=== PATIENT | male | born 1975 | race African-American/Black ===

== ENCOUNTER 2016-10-17 13:30 | Emergency (ER) | payer OTHER ==
[2016-10-17] MEDS ORDERED: ONDANSETRON PF 4 MG/2 ML VIAL. ONE (14:30)
[2016-10-17 14:57] LABS: BASO % 1 % (0-3); EOS % 1 % (0-3); HEMATOCRIT 47.1 % (39.0-53.0); HEMOGLOBIN 15.8 g/dL (13.0-17.5); LYMPH # 2.3 x10^3/uL (1.0-4.8); LYMPH % 32 % (24-48); MEAN CORPUSCULAR HEMOGLOBIN 30 pg (25-35); MEAN CORPUSCULAR HGB CONC 34 g/dL (31-37); MEAN CORPUSCULAR VOLUME 90 fL (79-100); MONO % 6 % (0-9); NEUT % 61 % (31-73); PLATELET COUNT 233 x10^3/uL (140-400); RED BLOOD COUNT 5.27 x10^6/uL (4.30-5.70); RED CELL DISTRIBUTION WIDTH 13.2 % (11.5-14.5); WHITE BLOOD COUNT 7.2 x10^3/uL (4.0-11.0)
[2016-10-17 14:59] LABS: BILIRUBIN,URINE NEGATIVE (NEG); GLUCOSE,URINE NEGATIVE (NEG); NITRITE,URINE NEGATIVE (NEG); PH,URINE 5.5; PROTEIN,URINE 30 mg/dL (NEG-TRACE); UROBILINOGEN,URINE 0.2 mg/dL (0.2 mg/dL)
[2016-10-17] MEDS ORDERED: MORPHINE SULFATE 10 MG/ML VIAL. IV ONE ×2 (15:00→16:00)
[2016-10-17] MEDS ORDERED: IV NORMAL SALINE 1000ML BAG 1,000 ML IV ONE (15:00)
[2016-10-17] MEDS ORDERED: PROCHLORPERAZINE 10 MG/2 ML VIAL. IV ONE (15:00)
[2016-10-17 15:10] LABS: BACTERIA,URINE 0 /HPF (0-FEW); RBC,URINE OCC /HPF (0-2); SPERM,URINE PRESENT /HPF; WBC,URINE OCC /HPF (0-4)
[2016-10-17 15:11] LABS: BARBITURATES NEG (NEG); BENZODIAZEPINES NEG (NEG); CANNABINOIDS NEG (NEG); COCAINE NEG (NEG); METHADONE NEG (NEG); OPIATES NEG (NEG); PHENCYCLIDINE NEG (NEG)
[2016-10-17 15:18] LABS: CALCIUM 9.1 mg/dL (8.5-10.1); CREATININE 1.2 mg/dL (0.7-1.3); GFR 81.1; POTASSIUM 3.6 mmol/L (3.5-5.1)
[2016-10-17 15:22] LABS: ALBUMIN 4.2 g/dL (3.4-5.0); ALBUMIN/GLOBULIN RATIO 1.1 (1.0-1.7); TOTAL BILIRUBIN 0.3 mg/dL (0.2-1.0)
[2016-10-17] MEDS ORDERED: IOHEXOL 300 MG/ML 75 ML VIAL IV ONE (15:45)
[2016-10-17] MEDS ORDERED: ONDANSETRON PF 4 MG/2 ML VIAL. IV ONE (16:00)
--- NOTE | 2016-10-17 16:29 | RAD ---
Examination: CT of the abdomen pelvis with IV contrast History: History of right lower quadrant abdominal pain Comparison: None available Technique: Axial CT images of the abdomen pelvis were performed with IV contrast. Coronal and sagittal reformats are performed. PQRS Compliance Statement: One or more of the following individualized dose reduction techniques were utilized for this examination: 1. Automated exposure control 2. Adjustment of the mA and/or kV according to patient size 3. Use of iterative reconstruction technique Findings: The visualized bibasal lungs grossly appears unremarkable. No evidence of free air identified in the abdomen the visualized liver, spleen, adrenals grossly appears unremarkable. The gallbladder is mildly distended. The visualized pancreas grossly appears unremarkable. Mild right-sided hydronephrosis and hydroureter identified. There is mild decreased enhancement of the right kidney. 3 mm calculus identified in the urinary bladder just distal to the right ureterovesical junction. Minimal fat stranding identified about the proximal right ureter. The stomach is mildly distended. The small bowel is nondilated. The visualized appendix grossly appears unremarkable. Feces and gas noted in the colon. The caliber of the aorta grossly appears unremarkable. No evidence of lytic bony destructive lesion. Impression: 1. 3 mm calculus identified in the urinary bladder just distal to the right uterovesical junction with minimal right-sided hydronephrosis and hydroureter. There is mild decreased enhancement of the right kidney likely secondary to hydronephrosis due to recently passed stone from the right ureter into the urinary bladder. 2. Normal-appearing appendix.
--- NOTE | 2016-10-17 16:53 | PHYS DOC ---
Past Medical History Past Medical History: GERD Past Surgical History: No Surgical History Alcohol Use: None Drug Use: None Adult General Chief Complaint Chief Complaint: ABDOMINAL PAIN HPI HPI Patient is a 41 year old male who presents with moderate right mid abdominal pain radiating to the right lower quadrant that began this afternoon. Patient is also complaining of nausea and vomiting. He is actively vomiting in the ED. Patient denies any urgency frequency or hematuria. Denies any dysuria. Review of Systems Review of Systems Constitutional: Denies fever or chills [] Eyes: Denies change in visual acuity, redness, or eye pain [] HENT: Denies nasal congestion or sore throat [] Respiratory: Denies cough or shortness of breath [] Cardiovascular: No additional information not addressed in HPI [] GI: Right lower quadrant abdominal pain : Denies dysuria or hematuria [] Musculoskeletal: Denies back pain or joint pain [] Integument: Denies rash or skin lesions [] Neurologic: Denies headache, focal weakness or sensory changes [] Endocrine: Denies polyuria or polydipsia [] Current Medications Current Medications Current Medications Medications (Trade) Dose Ordered Sig/Yulia Start Time Stop Time Status Last Admin Dose Admin Hydromorphone HCl (Dilaudid) 1 mg 1X ONCE 10/17/16 17:00 10/17/16 17:01 DC 10/17/16 17:00 1 MG Iohexol (Omnipaque 300 Mg/ml) 75 ml 1X ONCE 10/17/16 15:45 10/17/16 15:46 DC 10/17/16 16:05 75 ML Ketorolac Tromethamine (Toradol) 30 mg 1X ONCE 10/17/16 17:00 10/17/16 17:01 DC 10/17/16 17:00 30 MG Morphine Sulfate 5 mg 1X ONCE 10/17/16 16:00 10/17/16 16:01 DC 10/17/16 15:57 5 MG Ondansetron HCl (Zofran) 4 mg 1X ONCE 10/17/16 16:00 10/17/16 16:01 DC 10/17/16 15:57 4 MG Prochlorperazine Edisylate (Compazine) 10 mg 1X ONCE 10/17/16 15:00 10/17/16 15:01 DC 10/17/16 14:57 10 MG Sodium Chloride 1,000 ml @ 1,000 mls/hr 1X ONCE 10/17/16 15:00 10/17/16 15:59 DC 10/17/16 14:57 1,000 MLS/HR Tamsulosin HCl (Flomax) 0.4 mg 1X ONCE 10/17/16 17:00 10/17/16 17:01 DC 10/17/16 17:00 0.4 MG Allergies Allergies Allergies Coded Allergies Type Severity Reaction Last Updated Verified No Known Drug Allergies 10/17/16 No Physical Exam Physical Exam Constitutional: Well developed, well nourished, no acute distress, non-toxic appearance. [] HENT: Normocephalic, atraumatic, bilateral external ears normal, oropharynx moist, no oral exudates, nose normal. [] Eyes: PERRLA, EOMI, conjunctiva normal, no discharge. [] Neck: Normal range of motion, no tenderness, supple, no stridor. [] Cardiovascular:Heart rate regular rhythm, no murmur [] Lungs & Thorax: Bilateral breath sounds clear to auscultation [] Abdomen: Bowel sounds normal, soft, no right upper quadrant tenderness, tenderness med to right lower quadrant, negative psoas sign negative obturator sign negative Rovsing sign, no masses, no pulsatile masses. [] Skin: Warm, dry, no erythema, no rash. [] Back: No tenderness, no CVA tenderness. [] Extremities: No tenderness, no cyanosis, no clubbing, ROM intact, no edema. [] Neurologic: Alert and oriented X 3, normal motor function, normal sensory function, no focal deficits noted. [] Psychologic: Affect normal, judgement normal, mood normal. [] Current Patient Data Vital Signs Vital Signs Date Time Temp Pulse Resp B/P (MAP) Pulse Ox O2 Delivery O2 Flow Rate FiO2 10/17/16 17:00 20 10/17/16 14:22 97.7 78 139/80 (99) 97 Room Air 97.7 Lab Values Laboratory Tests Test 10/17/16 14:00 10/17/16 14:30 White Blood Count 7.2 x10^3/uL (4.0-11.0) Red Blood Count 5.27 x10^6/uL (4.30-5.70) Hemoglobin 15.8 g/dL (13.0-17.5) Hematocrit 47.1 % (39.0-53.0) Mean Corpuscular Volume 90 fL (79-100) Mean Corpuscular Hemoglobin 30 pg (25-35) Mean Corpuscular Hemoglobin Concent 34 g/dL (31-37) Red Cell Distribution Width 13.2 % (11.5-14.5) Platelet Count 233 x10^3/uL (140-400) Neutrophils (%) (Auto) 61 % (31-73) Lymphocytes (%) (Auto) 32 % (24-48) Monocytes (%) (Auto) 6 % (0-9) Eosinophils (%) (Auto) 1 % (0-3) Basophils (%) (Auto) 1 % (0-3) Neutrophils # (Auto) 4.4 x10^3uL (1.8-7.7) Lymphocytes # (Auto) 2.3 x10^3/uL (1.0-4.8) Monocytes # (Auto) 0.4 x10^3/uL (0.0-1.1) Eosinophils # (Auto) 0.1 x10^3/uL (0.0-0.7) Basophils # (Auto) 0.0 x10^3/uL (0.0-0.2) Sodium Level 139 mmol/L (136-145) Potassium Level 3.6 mmol/L (3.5-5.1) Chloride Level 103 mmol/L (98-107) Carbon Dioxide Level 26 mmol/L (21-32) Anion Gap 10 (6-14) Blood Urea Nitrogen 16 mg/dL (8-26) Creatinine 1.2 mg/dL (0.7-1.3) Estimated GFR (Cockcroft-Gault) 81.1 BUN/Creatinine Ratio 13 (6-20) Glucose Level 166 mg/dL (70-99) H Calcium Level 9.1 mg/dL (8.5-10.1) Total Bilirubin 0.3 mg/dL (0.2-1.0) Aspartate Amino Transferase (AST) 33 U/L (15-37) Alanine Aminotransferase (ALT) 72 U/L (16-63) H Alkaline Phosphatase 51 U/L (46-116) Total Protein 8.0 g/dL (6.4-8.2) Albumin 4.2 g/dL (3.4-5.0) Albumin/Globulin Ratio 1.1 (1.0-1.7) Lipase 78 U/L (73-393) Ethyl Alcohol Level < 10 mg/dL (0-10) Urine Collection Type Unknown Urine Color Yellow Urine Clarity Clear Urine pH 5.5 Urine Specific Exchange >=1.030 Urine Protein 30 mg/dL (NEG-TRACE) Urine Glucose (UA) Negative mg/dL (NEG) Urine Ketones (Stick) Negative mg/dL (NEG) Urine Blood Negative (NEG) Urine Nitrite Negative (NEG) Urine Bilirubin Negative (NEG) Urine Urobilinogen Dipstick 0.2 mg/dL (0.2 mg/dL) Urine Leukocyte Esterase Small (NEG) Urine RBC Occ /HPF (0-2) Urine WBC Occ /HPF (0-4) Urine Bacteria 0 /HPF (0-FEW) Urine Mucus Marked /LPF Urine Sperm Present /HPF Urine Opiates Screen Neg (NEG) Urine Methadone Screen Neg (NEG) Urine Barbiturates Neg (NEG) Urine Phencyclidine Screen Neg (NEG) Urine Amphetamine/Methamphetamine Neg (NEG) Urine Benzodiazepines Screen Neg (NEG) Urine Cocaine Screen Neg (NEG) Urine Cannabinoids Screen Neg (NEG) Urine Ethyl Alcohol Neg (NEG) Laboratory Tests 10/17/16 14:00 Laboratory Tests 10/17/16 14:00 EKG EKG [] Radiology/Procedures Radiology/Procedures []PROCEDURE: CT ABD PELV W/ IV CONTRST ONLY Examination: CT of the abdomen pelvis with IV contrast History: History of right lower quadrant abdominal pain Comparison: None available Technique: Axial CT images of the abdomen pelvis were performed with IV contrast. Coronal and sagittal reformats are performed. PQRS Compliance Statement: One or more of the following individualized dose reduction techniques were utilized for this examination: 1. Automated exposure control 2. Adjustment of the mA and/or kV according to patient size 3. Use of iterative reconstruction technique Findings: The visualized bibasal lungs grossly appears unremarkable. No evidence of free air identified in the abdomen the visualized liver, spleen, adrenals grossly appears unremarkable. The gallbladder is mildly distended. The visualized pancreas grossly appears unremarkable. Mild right-sided hydronephrosis and hydroureter identified. There is mild decreased enhancement of the right kidney. 3 mm calculus identified in the urinary bladder just distal to the right ureterovesical junction. Minimal fat stranding identified about the proximal right ureter. The stomach is mildly distended. The small bowel is nondilated. The visualized appendix grossly appears unremarkable. Feces and gas noted in the colon. The caliber of the aorta grossly appears unremarkable. No evidence of lytic bony destructive lesion. Impression: 1. 3 mm calculus identified in the urinary bladder just distal to the right uterovesical junction with minimal right-sided hydronephrosis and hydroureter. There is mild decreased enhancement of the right kidney likely secondary to hydronephrosis due to recently passed stone from the right ureter into the urinary bladder. 2. Normal-appearing appendix. DICTATED and SIGNED BY: EMILY LILLY MD DATE: 10/17/16 1620 CC: NOÉ CHRISTY APRN; NO PCP; NON,STAFF ~ Course & Med Decision Making Course & Med Decision Making Pertinent Labs and Imaging studies reviewed. (See chart for details) Patient is in the ED with complaints of right mid to lower abdominal pain that began today. CBC with no acute findings, CMP would not acute findings, urine has small amount of leukocytes. CT of the abdomen and pelvic was noted for a 3 mm calculus in the urinary bladder distal to the right UVJ junction with minimal right hydronephrosis and hydroureter. Patient's pain is well-controlled in the ED. He has been given morphine and Dilaudid Toradol Flomax and Zofran. He also received a liter of fluids. He'll be discharged with oxycodone, Cipro, Zofran, and Flomax. Provided instructions to follow-up with the urologist as soon as possible. Dragon Disclaimer Dragon Disclaimer This electronic medical record was generated, in whole or in part, using a voice recognition dictation system. Departure Departure Impression: Primary Impression: Kidney stone on right side Additional Impression: Urinary tract infection Disposition: HOME, SELF-CARE Condition: STABLE Referrals: NO PCP (PCP) RAJ DAILY MD Follow-up in the next 1-5 days Patient Instructions: Kidney Stones, Urinary Tract Infection Additional Instructions: You were seen for urinary tract infection as well as kidney stone. Take the prescribed antibiotics as ordered. Ensure you complete them. Take the pain medicine as needed. If symptoms worsen come back to the ED. Follow-up with the provided doctor in the next 1-5 days. Scripts Ciprofloxacin Hcl (CIPRO) 500 Mg Tablet 1 TAB PO BID, #14 TAB Prov: NOÉ CHRISTY APRN 10/17/16 Promethazine Hcl (PROMETHAZINE HCL) 25 Mg Tablet 1 TAB PO PRN Q6HRS, #20 TAB Prov: NOÉ CHRISTY APRN 10/17/16 Ondansetron (ZOFRAN ODT) 4 Mg Tab.rapdis 1 TAB SL Q8HRS, #15 TAB Prov: NOÉ CHRISTY APRN 10/17/16 Tamsulosin Hcl (FLOMAX) 0.4 Mg Cap.er.24h 1 CAP PO DAILY, #6 CAP 11 Refills Prov: NOÉ CHRISTY APRN 10/17/16 Oxycodone/Apap 5-325 (PERCOCET 5-325 MG TABLET) 1 Each Tablet 1-2 TAB PO Q4-6HRS Y for PAIN, #30 TAB Prov: NOÉ CHRISTY APRN 10/17/16 Problem Qualifiers Additional Impression: Urinary tract infection Urinary tract infection type: acute cystitis Hematuria presence: without hematuria Qualified Codes: N30.00 - Acute cystitis without hematuria ONÉ CHRISTY APRN Oct 17, 2016 16:53
[2016-10-17] MEDS ORDERED: HYDROmorphone 2 MG/ML VIAL IV ONE (17:00)
[2016-10-17] MEDS ORDERED: KETOROLAC TROMETHAMINE 30 MG/ML INJ. IV ONE (17:00)
[2016-10-17] MEDS ORDERED: TAMSULOSIN 0.4 MG CAP.ER.24H. PO ONE (17:00)
[2016-10-17] MEDS ORDERED: TAMS0.4C97 PO (17:33)
[2016-10-17] MEDS ORDERED: OXYC-323 PO (17:33)
[2016-10-17] MEDS ORDERED: CIPR500T94 PO (17:33)
[2016-10-17] MEDS ORDERED: ONDA4TAB10 SL (17:33)
[2016-10-17] MEDS ORDERED: PROM25TA10 PO (17:33)
[2016-10-17 18:00] VITALS: BP 145/91
== END 2016-10-17 18:14 | disposition home or self-care (01) ==
LOC: ER 13:30
DX: N13.2 Hydronephrosis with renal and ureteral calculous obstruction (principal); N21.0 Calculus in bladder; N30.00 Acute cystitis without hematuria; K21.9 Gastro-esophageal reflux disease without esophagitis
CPT/HCPCS: 36415; 74177; 80053; 80305; 80320; 81001; 83690; 85027; 96361; 96374; 96375; 96376; 99285; J0780; J1170; J1885; J2270; J2405; J7030; Q9967; G0480; G0481